=== PATIENT | female | born 2000 | race Caucasian/White ===

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

== ENCOUNTER 2021-07-14 18:12 | Emergency (ER) | payer OTHER ==
[~2021-07-14] VITALS: Ht 170.2 cm; Wt 97.0 kg
[2021-07-14] MEDS ORDERED: CEFTRIAXONE 1,000 MG IM ONE (19:00)
[2021-07-14] MEDS ORDERED: DOXYCYCLINE 100MG TABLET PO ONE (19:00)
[2021-07-14 19:10] LABS: BASOPHILS % (AUTO) 1 % (0-1); EOSINOPHILS % (AUTO) 2 % (1-7); LYMPHOCYTES % (AUTO) 35 % (22-44); MEAN CORPUSCULAR HEMOGLOBIN 28.1 pg (27.0-34.8); MEAN CORPUSCULAR HGB CONC 33.2 g/dL (32.4-35.8); MEAN PLATELET VOLUME 7.7 fL (7.4-10.4); MONOCYTES % (AUTO) 8 % (2-9); NEUTROPHILS % (AUTO) 55 % (42-75); PLATELET COUNT 380 x10^3/uL (130-400); RED BLOOD COUNT 4.98 x10^6/uL (3.82-5.3); RED CELL DISTRIBUTION WIDTH 13.4 % (9.6-15.2)
[2021-07-14 19:30] LABS: ALANINE AMINOTRANSFERASE 36 U/L (12-78); ALBUMIN 3.6 g/dL (3.4-5.0); ANION GAP 7 mmol/L (5-15); CALCIUM 8.4 mg/dL (8.5-10.1); CHLORIDE 106 mmol/L (98-107)
[2021-07-14 19:34] LABS: ALKALINE PHOSPHATASE 64 U/L (45-117); BILIRUBIN,TOTAL 0.4 mg/dL (0.2-1.0); TOTAL PROTEIN 7.8 g/dL (6.4-8.2)
--- NOTE | 2021-07-14 20:29 | NUR ---
ASSUMED CARE OF PATIENT. PATIENT C/O LOWER ABD PAIN WITH DISCHARGE. VS STABLE. CALL LIGHT IN PLACE. WILL CONTINUE TO MONITOR.
[2021-07-14 21:00] VITALS: BP 120/64
--- NOTE | 2021-07-14 21:03 | NUR ---
REPORT GIVEN TO DEVANG NAVARRETE
--- NOTE | 2021-07-14 21:03 | NUR ---
REPORT GIVEN TO DEVANG NAVARRETE
--- NOTE | 2021-07-14 21:14 | NUR ---
patient placed on pelvic bed. pelvic cart at bedside.
[2021-07-14 21:16] LABS: MICROSCOPIC INDICATED
[2021-07-14 22:03] LABS: CLUE CELLS PRESENT (NONE SEEN); WET PREP WBCS MANY (FEW)
[2021-07-14] MEDS ORDERED: CEFTRIAXONE 1,000 MG ONE (22:38)
[2021-07-14] MEDS ORDERED: DOXYCYCLINE 100MG TABLET ONE (22:38)
== END 2021-07-14 23:03 | disposition home or self-care (01) ==
LOC: ED 22:11
DX: N76.0 Acute vaginitis (principal); B96.89 Other specified bacterial agents as the cause of diseases classified elsewhere
CPT/HCPCS: 36415; 76830; 80053; 81001; 84703; 85025; 87077; 87086; 87210; 87491; 87591; 87808; 99284